=== PATIENT | male | born 1940 | race Caucasian/White ===

== ENCOUNTER 2024-05-08 09:46 | Emergency (ER) | payer OTHER ==
[2024-05-08 09:58] VITALS: BP 149/57; RESP 16; TEMP 97.7; BMI 24.2
[2024-05-08 11:59] LABS: BASO % 0.4 % (0-2.0); EOS % 1.2 % (0-4.5); HEMATOCRIT 38.6 % (35.4-49); HEMOGLOBIN 12.6 GM/dL (11.7-16.9); LYMPH % 29.7 % (8-40); MCH 30.8 pg (25.7-33.7); MCHC 32.6 g/dl (32.0-35.9); MEAN CELL VOLUME 94.3 fl (80-96); MEAN PLT VOLUME 9.8 fl (7.5-11.1); MONO % 11.2 % (3.8-10.2); NEUT % 57.5 % (42.8-82.8); PLATELET COUNT 221 10^3/uL (134-434); RBC 4.09 M/mm3 (4.00-5.60); RDW 13.2 % (11.9-15.9); WHITE BLOOD COUNT 6.8 K/mm3 (4.0-10.0)
[2024-05-08] MEDS ORDERED: PIPERACILLIN/TAZOB 4.5 GM 4.5 GM/100 ML BAG IVPB ONE (12:03)
[2024-05-08 12:11] LABS: INR 1.08 (0.83-1.09); PROTHROMBIN TIME (PATIENT) 11.9 SEC (9.7-13.0)
[2024-05-08 12:14] LABS: ACTIVATED PTT 26.7 SECONDS (25.2-36.5); CHLORIDE 102 mmol/L (98-107); POTASSIUM 4.8 mmol/L (3.5-5.1); SODIUM 138 mmol/L (136-145)
[2024-05-08 12:16] LABS: ALBUMIN 3.7 g/dl (3.4-5.0); ANION GAP 6 mmol/L (4-13); BLOOD UREA NITROGEN 41.3 mg/dL (7-18); CALCIUM 9.5 mg/dL (8.5-10.1); CO2 31 mmol/L (21-32); GLUCOSE,RANDOM 83 mg/dL (74-106)
[2024-05-08 12:19] LABS: CREATININE 1.8 mg/dL (0.55-1.3); SGOT/AST 12 U/L (15-37); SGPT/ALT 18 U/L (13-61)
[2024-05-08 12:21] LABS: BILIRUBIN,TOTAL 0.3 mg/dL (0.2-1); TOT PROT 7.4 g/dl (6.4-8.2)
[2024-05-08 12:22] LABS: ALK PHOS 84 U/L (45-117)
[2024-05-08] MEDS: VANCOMYCIN 1,000 MG in DEXTROSE 5%-WATER - 250 ML IVPB ONE (12:27)
[2024-05-08] MEDS: PIPERACILLIN/TAZOB 4.5 GM 4.5 GM in DEXTROSE 5%-WATER 100 ML IVPB ONE (12:27)
[2024-05-08 12:29] LABS: LACTIC ACID 2.2 mmol/L (0.4-2.0)
[2024-05-08] MEDS: LACTATED RINGERS SOLUTION 1000 ML INFUS.BAG IV ONE (12:40)
[2024-05-08] MEDS: SODIUM CHLORIDE 0.9% 1000 ML INFUS.BAG IV ONE (12:40)
[2024-05-08 12:47] VITALS: PULSE 87
[2024-05-08 12:51] LABS: ERYTHROCYTE SEDIMENTATION RATE 42 mm/hr (0-20)
== END 2024-05-08 12:45 | disposition short-term general hospital (02) ==
LOC: JER 09:46
DX: M79.672 Pain in left foot (principal); R20.8 Other disturbances of skin sensation
CPT/HCPCS: 36415; 73630-TC-LT; 80053; 83605; 85025; 85610; 85651; 85730; 86140; 86850; 86900; 86901; 87040; 93005; 93010; 93970-TC; 99285-25